=== PATIENT | male | born 1980 | race Caucasian/White ===

== ENCOUNTER 2023-06-05 08:55 | Outpatient (CLI) | payer OTHER, SELFPAY | END 2023-06-05 08:56 | disposition home or self-care (01) | PROVIDERS: PCP Family Medicine; Visit Provider Family Medicine | DX: Z00.00 Encounter for general adult medical examination without abnormal findings (principal); Z13.1 Encounter for screening for diabetes mellitus | CPT/HCPCS: 80048 ==

== ENCOUNTER 2025-03-01 07:00 | Outpatient (CLI) | payer OTHER, SELFPAY ==
--- NOTE | 2025-03-01 07:15 | CRLHL7_ITS ---
For Patients: As a result of the Century Cures Act, medical imaging exams and procedure reports are released immediately into your electronic medical record. You may view this report before your referring provider. If you have questions, please contact your health care provider. Indication: Dorsalgia. Technique: Multiplanar multisequence noncontrast MR images of the lumbar spine. Comparison: None. Findings: Straightening of the lumbar lordosis. Vertebral body heights maintained. No acute fracture or spondylolisthesis. No T1 hypointense lesions. Normal conus terminates at L1-2. T12-L1: No spinal canal or neural foraminal narrowing L1-2: Mild disc degeneration. Annular bulge. No spinal canal or neural foraminal narrowing. L2-3: No spinal canal or neural foraminal narrowing. L3-4: Minimal disc degeneration. No spinal canal or neural foraminal narrowing. L4-5: [id number] disc degeneration. Mild disc height loss. Mild vertebral body edema. Shallow broad-based central disc protrusion with dorsal annular fissure. Minimal facet arthropathy. Minimal spinal canal and lateral recess narrowing. No neural foraminal narrowing. L5-S1: Moderate disc degeneration. Mild vertebral body edema. Shallow disc bulge with small dorsal annular fissure. Minimal facet arthropathy. No spinal canal or neural foraminal narrowing. Impression: 1. Mild multilevel lumbar spondylosis without spinal canal or neural foraminal stenosis. 2. Mild discogenic vertebral body edema at L4-5 and L5-S1. Dictated by Johnson Perez MD @ 03/02/2025 7:55:52 AM (Electronically Signed)
== END 2025-03-01 07:01 | disposition home or self-care (01) ==
LOC: MRI 07:02
PROVIDERS: PCP Family Medicine; Visit Provider Internal Medicine
DX: M54.9 Dorsalgia, unspecified (principal); M47.896 Other spondylosis, lumbar region
CPT/HCPCS: 72148

== ENCOUNTER 2025-04-12 11:12 | Outpatient (CLI) | payer OTHER, SELFPAY | END 2025-04-12 11:13 | disposition home or self-care (01) | PROVIDERS: PCP Family Medicine; Visit Provider Family Medicine | DX: E78.5 Hyperlipidemia, unspecified (principal); Z13.1 Encounter for screening for diabetes mellitus | CPT/HCPCS: 80048; 80061 ==